=== PATIENT | male | born 1950 | race Caucasian/White ===

== ENCOUNTER → 2019-08-19 | Outpatient (CLI) | payer OTHER ==
[~2019-08-19] MED LIST: ADVAIR 100-501 EACH PO; ALLOPURINOL 30300 M1 PO; ASACOL PO; ASPIRIN EC81 M1 PO; ASPIRIN325 PO; B12INJ IM; BENAZEPRIL HCL5 MG PO; CARVEDILOL25 MG PO; COREG CR40 MG PO; CYMBALTA60 MG PO; FLEXERIL PO; FLORANEX TABLE1 EAC1 OR; FOLIC ACID1 MG PO; LAMICTAL XR100 MG PO; LORTAB 5 MG/5001 TA1 PO; PAXIL20 MG PO; PROTONIX40 M2 PO; RESTORIL15 MG PO
== END ==
LOC: SJCVCIMAG 08:05
DX: I42.9 Cardiomyopathy, unspecified (principal); E78.5 Hyperlipidemia, unspecified; F17.200 Nicotine dependence, unspecified, uncomplicated